=== PATIENT | male | born 1940 | race Caucasian/White ===

== ENCOUNTER 2018-08-04 10:55 | Outpatient (CLI) | payer MEDICARE ==
[~2018-08-04 10:55] MED LIST: CALC600T4 PO; LOSA1TAB22 PO; MULT-412 PO; OMEP40CA3 PO; SIMV40TA3 PO; vitamin D PO
== END 2018-08-04 23:59 | disposition home or self-care (01) ==
LOC: CFH 10:55
PROVIDERS: ATTEND Family Medicine
DX: M81.0 Age-related osteoporosis without current pathological fracture (principal)
CPT/HCPCS: 77080

== ENCOUNTER 2018-10-24 08:51 | Outpatient (CLI) | payer MEDICARE | END 2018-10-24 23:59 | disposition home or self-care (01) | LOC: CFH 08:51 | PROVIDERS: ATTEND Urology | DX: C61 Malignant neoplasm of prostate (principal) | CPT/HCPCS: 74177; Q9967 ==

== ENCOUNTER 2018-12-30 08:44 | Emergency (ER) | payer MEDICARE ==
[~2018-12-30] VITALS: Ht 170.2 cm; Wt 58.2 kg
[2018-12-30 08:49] VITALS: BP 178/60
[2018-12-30] MEDS ORDERED: ONDANSETRON ODT 4 MG ONE (09:13)
[2018-12-30] MEDS ORDERED: HYDROmorphone 1 MG/ML, 1ML VIAL ONE (09:25)
[2018-12-30] MEDS ORDERED: ONDANSETRON ODT 4 MG PO ONE (09:30)
[2018-12-30] MEDS ORDERED: HYDROmorphone 1 MG/ML, 1ML INJ IM ONE (09:30)
[2018-12-30] MEDS ORDERED: KETOROLAC 30 MG/1 ML ONE (09:55)
[2018-12-30] MEDS ORDERED: KETOROLAC 30 MG/1 ML IM ONE (10:00)
[2018-12-30] MEDS ORDERED: NEOSPORIN OINT. PKT 1 PACKET ONE (11:49)
== END 2018-12-30 11:43 | disposition home or self-care (01) ==
LOC: ED 09:13
DX: M25.531 Pain in right wrist (principal); K21.9 Gastro-esophageal reflux disease without esophagitis; E78.00 Pure hypercholesterolemia, unspecified; Z85.46 Personal history of malignant neoplasm of prostate; Z90.49 Acquired absence of other specified parts of digestive tract
CPT/HCPCS: 73110; 96372; 99283; J1170; J1885; Q0162